=== PATIENT | female | born 1990 | race Caucasian/White ===

== ENCOUNTER 2017-09-03 15:15 | Outpatient (CLI) | payer SELFPAY ==
[~2017-09-03] VITALS: Ht 172.7 cm; Wt 85.0 kg
[~2017-09-03 15:15] MED LIST: DOCU-131 PO; IBUP-1222 PO; OXYC-302 PO
== END 2017-09-03 17:44 | disposition home or self-care (01) ==
LOC: LDOP 15:15
PROVIDERS: ATTEND Obstetrics & Gynecology
DX: O36.8130 Decreased fetal movements, third trimester, not applicable or unspecified (principal); Z3A.00 Weeks of gestation of pregnancy not specified
CPT/HCPCS: 59025; 81003; 87081; 99211; G0463

== ENCOUNTER 2017-09-21 20:18 | Inpatient (IN) | payer OTHER ==
[2017-09-21] MEDS ORDERED: NEWBORN KIT ONE (20:35)
[2017-09-21] MEDS ORDERED: LIDOCAINE 1%, 20ML ONE ×2 (20:38→22:31)
[2017-09-21] MEDS ORDERED: MISOPROSTOL 200 MCG TABLET ONE (20:38)
[2017-09-21] MEDS ORDERED: OXYTOCIN 30U/ 0.9% NaCL 500ML 500 ML ONE ×2 (20:38→22:51)
[2017-09-21] MEDS ORDERED: FENTANYL PF 100 MCG/2ML ONE (22:18)
[2017-09-21] MEDS: IBUPROFEN 800 MG TABLET PO PRN (23:00)
[2017-09-21] MEDS ORDERED: IBUPROFEN 600 MG TABLET ONE (23:01)
[2017-09-21] MEDS ORDERED: OXYcodone/APAP 5/325MG TABLET ONE (23:02)
[2017-09-21] MEDS: OXYTOCIN 30U/ 0.9% NaCL 500ML 500 ML IV SCH (23:02)
[2017-09-21] MEDS ORDERED: GLYCERIN ADULT SUPP PR PRN (23:30)
[2017-09-21] MEDS ORDERED: MISOPROSTOL 200 MCG TABLET PR PRN (23:30)
[2017-09-21] MEDS ORDERED: ACETAMINOPHEN 325 MG TABLET PO PRN (23:30)
[2017-09-21] MEDS ORDERED: OXYcodone/APAP 5/325MG TABLET PO PRN (23:30)
[2017-09-21] MEDS ORDERED: METOCLOPRAMIDE 5 MG/ML, 2ML IV PRN (23:30)
[2017-09-21] MEDS ORDERED: ONDANSETRON 2MG/ML, 2ML IV PRN (23:30)
[2017-09-21] MEDS ORDERED: BISACODYL 10 MG SUPP PR PRN (23:30)
[2017-09-21] MEDS: OXYcodone/APAP 5/325MG TABLET PO PRN (23:49)
[2017-09-22 00:45] VITALS: BP 124/65
[2017-09-22] MEDS: OXYcodone/APAP 5/325MG TABLET PO PRN ×3 (03:53→18:35)
[2017-09-22 04:15] VITALS: BP 107/68
[2017-09-22 06:20] LABS: HEMATOCRIT 30.7 % (34.6-47.8); HEMOGLOBIN 10.2 g/dL (11.7-16.4); WHITE BLOOD COUNT 15.5 x10^3/uL (3.4-10)
[2017-09-22 07:50] VITALS: BP 110/68
[2017-09-22] MEDS ORDERED: PRENATAL VIT/IRON/FA 1 EACH TABLET ONE (07:59)
[2017-09-22] MEDS: PRENATAL VIT/IRON/FA 1 EACH TABLET PO SCH (08:04)
[2017-09-22] MEDS: IBUPROFEN 800 MG TABLET PO PRN ×2 (08:04→18:35)
[2017-09-22] MEDS: DOCUSATE 100 MG CAPSULE PO PRN ×2 (08:04→13:15)
[2017-09-22] MEDS: OXYTOCIN 30U/ 0.9% NaCL 500ML 500 ML IV SCH ×2 (09:02→19:02)
[2017-09-22 11:50] VITALS: BP 114/76
[2017-09-22 15:11] VITALS: BP 100/61
[2017-09-22 20:20] VITALS: BP 99/66
[2017-09-23] MEDS: OXYcodone/APAP 5/325MG TABLET PO PRN (00:51)
[2017-09-23] MEDS: OXYTOCIN 30U/ 0.9% NaCL 500ML 500 ML IV SCH (05:02)
[2017-09-23 06:57] VITALS: BP 110/68
[2017-09-23] MEDS: DOCUSATE 100 MG CAPSULE PO PRN (07:43)
[2017-09-23] MEDS: IBUPROFEN 800 MG TABLET PO PRN (07:43)
[2017-09-23] MEDS: PRENATAL VIT/IRON/FA 1 EACH TABLET PO SCH (07:43)
== END 2017-09-23 12:33 | disposition home or self-care (01) | DRG 775 ==
LOC: LDIP 20:18 → 2NW 09-22 00:58
PROVIDERS: ADMIT Obstetrics & Gynecology; ATTEND Obstetrics & Gynecology
PROC: 10E0XZZ Delivery of Products of Conception, External Approach (ICD-10-PCS; principal; 2017-09-21)
PROC: 0KQM0ZZ Repair Perineum Muscle, Open Approach (ICD-10-PCS; 2017-09-21)
DX: O69.81X0 Labor and delivery complicated by cord around neck, without compression, not applicable or unspecified (principal); O34.211 Maternal care for low transverse scar from previous cesarean delivery; Z37.0 Single live birth; Z3A.37 37 weeks gestation of pregnancy; O70.1 Second degree perineal laceration during delivery
CPT/HCPCS: 36415; 85025; 86850; 86900; J2590; J7120

== ENCOUNTER 2020-12-11 15:48 | Outpatient (CLI) | payer BC, OTHER ==
[~2020-12-11] VITALS: Ht 172.7 cm; Wt 89.1 kg
[2020-12-11 16:05] VITALS: BP 138/87
[2020-12-11 16:22] LABS: BASOPHILS % (AUTO) 0 % (0-1); EOSINOPHILS % (AUTO) 1 % (1-7); LYMPHOCYTES % (AUTO) 17 % (22-44); MEAN CORPUSCULAR HEMOGLOBIN 29.5 pg (27.0-34.8); MEAN CORPUSCULAR HGB CONC 33.6 g/dL (32.4-35.8); MEAN PLATELET VOLUME 11.4 fL (7.4-10.4); MONOCYTES % (AUTO) 5 % (2-9); NEUTROPHILS % (AUTO) 77 % (42-75); PLATELET COUNT 219 x10^3/uL (130-400); RED BLOOD COUNT 3.59 x10^6/uL (3.82-5.3); RED CELL DISTRIBUTION WIDTH 12.7 % (9.6-15.2)
[2020-12-11 16:25] LABS: MD NO
[2020-12-11 16:29] LABS: MICROSCOPIC INDICATED
[2020-12-11 16:29] LABS: ALBUMIN 2.7 g/dL (3.4-5.0); ANION GAP 9 mmol/L (5-15); CALCIUM 8.7 mg/dL (8.5-10.1); CHLORIDE 109 mmol/L (98-107)
[2020-12-11 16:32] LABS: ALANINE AMINOTRANSFERASE 11 U/L (12-78); ALKALINE PHOSPHATASE 66 U/L (45-117); BILIRUBIN,TOTAL 0.4 mg/dL (0.2-1.0); CREATININE 0.54 mg/dL (0.55-1.02); TOTAL PROTEIN 6.2 g/dL (6.4-8.2)
[2020-12-11 16:37] LABS: BILIRUBIN, DIRECT < 0.1 mg/dL (0.1-0.2)
== END 2020-12-11 17:05 | disposition home or self-care (01) ==
LOC: LDOP 15:48
PROVIDERS: ATTEND Obstetrics & Gynecology
DX: O16.3 Unspecified maternal hypertension, third trimester (principal); Z3A.37 37 weeks gestation of pregnancy
CPT/HCPCS: 36415; 59025; 80053; 81001; 82248; 82570; 84156; 84550; 85025

== ENCOUNTER 2020-12-23 10:58 | Inpatient (IN) | payer OTHER ==
[~2020-12-23] VITALS: Ht 172.7 cm; Wt 89.1 kg
[~2020-12-23 10:58] MED LIST changes: -OXYC-302 PO; +OXYC1TAB14 PO
[2020-12-23 11:13] VITALS: BP 143/80
[2020-12-23 11:26] LABS: MICROSCOPIC INDICATED
[2020-12-23 11:28] LABS: BASOPHILS % (AUTO) 1 % (0-1); EOSINOPHILS % (AUTO) 1 % (1-7); LYMPHOCYTES % (AUTO) 15 % (22-44); MEAN CORPUSCULAR HEMOGLOBIN 28.7 pg (27.0-34.8); MEAN CORPUSCULAR HGB CONC 33.2 g/dL (32.4-35.8); MEAN PLATELET VOLUME 11.7 fL (7.4-10.4); MONOCYTES % (AUTO) 4 % (2-9); NEUTROPHILS % (AUTO) 80 % (42-75); PLATELET COUNT 216 x10^3/uL (130-400); RED BLOOD COUNT 3.69 x10^6/uL (3.82-5.3); RED CELL DISTRIBUTION WIDTH 12.9 % (9.6-15.2)
[2020-12-23 11:37] LABS: MD NO
[2020-12-23 11:39] LABS: ALANINE AMINOTRANSFERASE 12 U/L (12-78); ALBUMIN 2.7 g/dL (3.4-5.0); ANION GAP 8 mmol/L (5-15); CALCIUM 8.5 mg/dL (8.5-10.1); CHLORIDE 108 mmol/L (98-107); CREATININE 0.58 mg/dL (0.55-1.02)
[2020-12-23 11:47] LABS: ALKALINE PHOSPHATASE 77 U/L (45-117); BILIRUBIN, DIRECT < 0.1 mg/dL (0.1-0.2); BILIRUBIN,TOTAL 0.7 mg/dL (0.2-1.0); TOTAL PROTEIN 6.4 g/dL (6.4-8.2)
[2020-12-23] MEDS ORDERED: OXYTOCIN 30U/ 0.9% NaCL 500ML 500 ML IV ONE (13:00)
[2020-12-23] MEDS ORDERED: TERBUTALINE 1 MG/ML, 1ML IVPush PRN (13:00)
[2020-12-23] MEDS ORDERED: FENTANYL PF 100 MCG/2ML IVPush PRN (13:00)
[2020-12-23] MEDS ORDERED: ONDANSETRON 2MG/ML, 2ML IVPush PRN (13:00)
[2020-12-23] MEDS ORDERED: TERBUTALINE 1 MG/ML, 1ML SQ PRN (13:00)
[2020-12-23] MEDS ORDERED: D5%-LACTATED RINGERS 1,000 ML IV SCH (13:00)
[2020-12-23] MEDS ORDERED: SODIUM CHLORIDE FLUSH 10ML SYR IVF PRN (13:00)
[2020-12-23] MEDS: LACTATED RINGERS 1,000 ML IV SCH (13:31)
[2020-12-23] MEDS ORDERED: NEWBORN KIT ONE (13:37)
[2020-12-23] MEDS ORDERED: LIDOCAINE 1%, 20ML ONE (13:38)
[2020-12-23] MEDS ORDERED: OXYTOCIN 30U/ 0.9% NaCL 500ML 500 ML ONE (13:38)
[2020-12-23] MEDS ORDERED: MISOPROSTOL 200 MCG TABLET ONE (13:38)
[2020-12-23] MEDS ORDERED: FENTANYL PF 100 MCG/2ML ONE ×2 (14:43→23:49)
[2020-12-23] MEDS: FENTANYL PF 100 MCG/2ML IV PRN ×2 (15:37→23:51)
[2020-12-23] MEDS ORDERED: DIPHENHYDRAMINE 25 MG CAPSULE ONE (22:02)
[2020-12-23] MEDS ORDERED: DIPHENHYDRAMINE 25 MG CAPSULE PO PRN (22:05)
[2020-12-24] MEDS: LACTATED RINGERS 1,000 ML IV SCH ×2 (06:40→09:19)
[2020-12-24] MEDS ORDERED: BUPIVACAINE 0.25% ONE ×3 (09:13→10:00)
[2020-12-24] MEDS ORDERED: FENTANYL/BUPIV./NS/PF 250 ML EPIDCONT ONE (09:13)
[2020-12-24] MEDS: FENTANYL PF 100 MCG/2ML IV PRN (09:56)
[2020-12-24] MEDS ORDERED: LACTATED RINGERS 1,000 ML INTUTE PRN (10:00)
[2020-12-24] MEDS ORDERED: LACTATED RINGERS 1,000 ML IV SCH (10:00)
[2020-12-24] MEDS ORDERED: FENTANYL/BUPIV./NS/PF 250 ML EPIDCONT SCH (10:00)
[2020-12-24] MEDS ORDERED: LACTATED RINGERS 1,000 ML INTUTE SCH (10:00)
[2020-12-24] MEDS ORDERED: LACTATED RINGERS 1,000 ML IVBOLUS PRN (10:00)
[2020-12-24] MEDS ORDERED: EPHEDRINE 50 MG/ML, 1ML IVPush PRN (10:00)
[2020-12-24] MEDS ORDERED: SODIUM CITRATE/CITRIC ACID 30 ML UDC PO ONE (10:30)
[2020-12-24] MEDS ORDERED: METOCLOPRAMIDE 5 MG/ML, 2ML IVPush ONE (10:30)
[2020-12-24] MEDS ORDERED: OXYTOCIN 30U/ 0.9% NaCL 500ML 500 ML ONE (12:41)
[2020-12-24] MEDS ORDERED: ACETAMINOPHEN 325 MG TABLET PO PRN ×2 (13:00)
[2020-12-24] MEDS ORDERED: SIMETHICONE 80 MG CHEW TAB PO PRN (13:00)
[2020-12-24] MEDS ORDERED: OXYcodone/APAP 5/325MG TABLET PO PRN (13:00)
[2020-12-24] MEDS ORDERED: MISOPROSTOL 200 MCG TABLET PR PRN (13:00)
[2020-12-24] MEDS ORDERED: IBUPROFEN 600 MG TABLET ONE (13:11)
[2020-12-24] MEDS: IBUPROFEN 600 MG TABLET PO PRN ×2 (13:13→19:14)
[2020-12-24] MEDS: OXYTOCIN 30U/ 0.9% NaCL 500ML 500 ML IV SCH ×2 (13:14→23:00)
[2020-12-24 14:07] VITALS: BP 150/92
[2020-12-24] MEDS: OXYcodone/APAP 5/325MG TABLET PO PRN ×2 (14:45→19:14)
[2020-12-24 16:30] VITALS: BP 148/81
[2020-12-24] MEDS: DOCUSATE 100 MG CAPSULE PO PRN (19:13)
[2020-12-24 20:00] VITALS: BP 131/83
[2020-12-24 20:29] LABS: BASOPHILS % (AUTO) 1 % (0-1); EOSINOPHILS % (AUTO) 1 % (1-7); LYMPHOCYTES % (AUTO) 13 % (22-44); MEAN CORPUSCULAR HEMOGLOBIN 28.6 pg (27.0-34.8); MEAN CORPUSCULAR HGB CONC 32.6 g/dL (32.4-35.8); MEAN PLATELET VOLUME 11.3 fL (7.4-10.4); MONOCYTES % (AUTO) 6 % (2-9); NEUTROPHILS % (AUTO) 79 % (42-75); PLATELET COUNT 200 x10^3/uL (130-400); RED BLOOD COUNT 3.57 x10^6/uL (3.82-5.3); RED CELL DISTRIBUTION WIDTH 12.9 % (9.6-15.2)
[2020-12-24 20:30] LABS: MD NO
[2020-12-25 00:14] VITALS: BP 133/82
[2020-12-25 04:30] VITALS: BP 132/83
[2020-12-25] MEDS: IBUPROFEN 600 MG TABLET PO PRN ×2 (04:43→11:45)
[2020-12-25] MEDS: OXYcodone/APAP 5/325MG TABLET PO PRN ×2 (04:44→11:44)
[2020-12-25 07:30] VITALS: BP 134/84
[2020-12-25] MEDS ORDERED: IBUP-1222 PO (08:14)
[2020-12-25] MEDS ORDERED: OXYC1TAB14 PO (08:15)
[2020-12-25] MEDS ORDERED: PRENATAL VIT/IRON/FA 1 EACH TABLET PO SCH (09:00)
[2020-12-25] MEDS: DOCUSATE 100 MG CAPSULE PO PRN (11:43)
== END 2020-12-25 12:20 | disposition home or self-care (01) | DRG 807 ==
LOC: LDOP 10:58 → LDIP 13:14 → 2NW 12-24 13:46
PROVIDERS: ADMIT Obstetrics & Gynecology; ATTEND Obstetrics & Gynecology
PROC: 3E0R3BZ Introduction of Anesthetic Agent into Spinal Canal, Percutaneous Approach (ICD-10-PCS; 2020-12-23)
PROC: 00HU33Z Insertion of Infusion Device into Spinal Canal, Percutaneous Approach (ICD-10-PCS; 2020-12-23)
PROC: 0U7C7ZZ Dilation of Cervix, Via Natural or Artificial Opening (ICD-10-PCS; 2020-12-23)
PROC: 3E033VJ Introduction of Other Hormone into Peripheral Vein, Percutaneous Approach (ICD-10-PCS; 2020-12-23)
PROC: 0HQ9XZZ Repair Perineum Skin, External Approach (ICD-10-PCS; principal; 2020-12-25)
PROC: 10E0XZZ Delivery of Products of Conception, External Approach (ICD-10-PCS; 2020-12-25)
PROC: 0UQMXZZ Repair Vulva, External Approach (ICD-10-PCS; 2020-12-25)
DX: O13.4 Gestational [pregnancy-induced] hypertension without significant proteinuria, complicating childbirth (principal); Z37.0 Single live birth; O34.219 Maternal care for unspecified type scar from previous cesarean delivery; O70.0 First degree perineal laceration during delivery; O71.82 Other specified trauma to perineum and vulva; Z20.822 Contact with and (suspected) exposure to COVID-19; Z3A.39 39 weeks gestation of pregnancy
CPT/HCPCS: 36415; 80053; 81001; 82248; 82570; 84156; 84550; 85025; 86592; 86850; 86900; 87635; G0378; J3010; J2590; J7120; Q0163